=== PATIENT | female | born 1970 | race Caucasian/White ===

== ENCOUNTER → 2022-07-30 16:27 | Outpatient (CLI) | payer OTHER, SELFPAY ==
--- NOTE | 2022-07-30 16:30 | DI.MG.S_ITS ---
BILATERAL DIGITAL SCREENING MAMMOGRAM 3D/2D WITH CAD: 07/30/2022 CLINICAL: Baseline exam. Routine screening. Family history of breast cancer. No prior exams were available for comparison. Both breasts are heterogeneously dense, which may obscure small masses (category c / 51-75% glandular tissue). Current study was also evaluated with a Computer Aided Detection (CAD) system. No significant masses, calcifications, or other findings are seen in either breast. IMPRESSION: NEGATIVE There is no mammographic evidence of malignancy. A 1 year screening mammogram is recommended. Based on Tyrer-Cuzick model (a risk assessment model), the patient's lifetime risk is 21.6% and her 10 year risk is 5.6%. If a patient has an elevated risk, a more comprehensive evaluation should be considered and/or a referral to a genetic counselor. The [employer], [employer], and NCCN Guidelines advise the consideration of Breast MRI as an adjunct to screening mammography in patients whose Lifetime risk to develop breast cancer is 20% or higher. This exam was interpreted at Station ID: [id number]. NOTE: For mammograms, a report in lay terms will be sent to the patient. Approximately 15% of breast malignancies will not be visualized mammographically. In the management of a palpable breast mass, a negative mammogram must not discourage biopsy of a clinically suspicious lesion. Electronically Signed By: Chay foote/elle:07/31/2022 07:59:57 letter sent: Normal Exam ACR BI-RADS Category 1: Negative 3341F
== END ==
PROVIDERS: Referring Provider Nurse Practitioner; Visit Provider Nurse Practitioner
DX: Z12.31 Encounter for screening mammogram for malignant neoplasm of breast (principal); Z80.3 Family history of malignant neoplasm of breast
CPT/HCPCS: 77063; 77067

== ENCOUNTER → 2023-08-12 08:15 | Outpatient (CLI) | payer OTHER, SELFPAY ==
[2023-08-12 10:09] LABS: Alanine Aminotransferase 19 IU/L (<35); Albumin 4.1 g/dL (3.5-5.0); Albumin Globulin Ratio 1.4 (1.0-2.8); Alkaline Phosphatase 49 U/L (38-126); Amylase 52 U/L (30-110); Aspartate Aminotransferase 22 IU/L (14-36); BUN Creatinine Ratio 12.5 (6-22); Bilirubin Total 0.6 mg/dL (0.2-1.3); Blood Urea Nitrogen 9 mg/dL (7-17); Calcium 9.5 mg/dL (8.4-10.2); Carbon Dioxide 25 mmol/L (22-32); Chloride 102 mmol/L (98-107); Cholesterol 219 mg/dL (140-199); Estimated Glomerular Filt Rate > 60 mL/min (>60); Globulin 2.9 g/dL (1.7-4.1); Glucose 95 mg/dL (70-100); HDL Cholesterol 66 mg/dL (40-60); HEMOLYSIS < 15 (0-50); LDL Cholesterol Calculated 131 mg/dL (<100); Lactate Dehydrogenase 163 U/L (120-246); Lipase 77 U/L (23-300); Potassium 4.8 mmol/L (3.4-5.1); Sodium 136 mmol/L (137-145); Triglycerides 109 mg/dL (35-150)
[2023-08-12 10:11] LABS: Add Manual Diff / Slide Review NO; Basophils Absolute Auto 100 /uL (0-100); Basophils Percent Auto 1.3 % (0-2); Eosinophils Absolute Auto 900 /uL (0-450); Eosinophils Percent Auto 18.8 % (2-4); Hematocrit 36.8 % (36-46); Hemoglobin 12.7 g/dL (12.0-16.0); Lymphocytes Absolute Auto 1500 /uL (1100-4500); Lymphocytes Percent Auto 30.8 % (25-40); Mean Corpuscular HGB Conc 34.4 % (30-36); Mean Corpuscular Hemoglobin 31.2 PG (26-34); Mean Corpuscular Volume 90.7 fL (80-100); Monocytes Absolute Auto 500 /uL (0-900); Monocytes Percent Auto 10.1 % (3-14); Neutrophils Absolute Auto 1900 /uL (1500-7000); Platelet Count 593 X10^3/uL (150-400); Red Blood Cell Count 4.06 X10^6/uL (4.0-5.2); Red Cell Distribution Width 13.3 % (11.6-14.8)
[2023-08-12 10:33] LABS: Thyroid Stimulating Hormone 0.214 uIU/mL (0.47-4.68)
[2023-08-12 10:38] LABS: Ferritin 20 ng/mL (11-264)
== END ==
LOC: LAB 08:19
PROVIDERS: PCP Naturopath; Referring Provider Naturopath; Visit Provider Naturopath
DX: Z00.00 Encounter for general adult medical examination without abnormal findings (principal); E61.1 Iron deficiency; N95.1 Menopausal and female climacteric states; R53.83 Other fatigue; Z87.19 Personal history of other diseases of the digestive system
CPT/HCPCS: 36415; 80053; 80061; 82150; 82728; 83615; 83690; 84443; 85025

== ENCOUNTER 2023-10-21 09:59 | Day surgery (SDC) | payer OTHER, SELFPAY ==
[2023-10-14 12:46] VITALS: BMI 25.4
--- NOTE | 2023-10-21 | PATH_ITS ---
[facility] Accession Number: [id number] No. of containers..01 Tissue . 01 Material submitted: . cervix - ANTERIOR/POSTERIOR CERVIX . 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 No high-grade squamous intraepithelial lesion identified. No evidence of malignancy. GILSON-1 present at endocervical margin in 9 to 12 o'clock and 12 to 3 o'clock, aspects of specimen. [facility] 10/28/2023 1707 Local . 01 Electronically signed: . Ambrosio Culver MD, PhD, Pathologist NPI- [id number] . 01 Gross description: . Received in formalin with two identifiers and ANT/POS cervix, are two linear, oriented fragments of cervix. The first fragment has a long suture which designates anterior per the requisition, and is 2.0 x 0.8 x 0.3 cm, with the presumed endocervical margin inked orange, and the remaining stromal margin inked blue. The second fragment has a short suture which designates posterior per the requisition, is 1.7 x 1.0 x 0.4 cm, with the presumed endocervical margin inked orange, and the remaining stromal margins inked green. Per the requisition, the sutures also designate 12 and 6, respectively. The fragments are serially sectioned, and the specimen is submitted entirely as follows: . A1: 12 to 3. A2: 3 to 6. A3: 6 to 9. A4: 9 to 12. ([id number]) /V 10/22/2023 1717 Local . 01 Pathologist provided ICD-10: N87.0 . 01 CPT . 316634 Specimen Comment: A courtesy copy of this report has been sent to [phone] Performed at: 01 [facility] [address] [facility], [place], [place] [id number] MD Darrin Edwards MD Phone: [phone]
[2023-10-21] MEDS: LACTATED RINGERS 1,000 ML 42 ML IV (10:16)
[2023-10-21 10:18] VITALS: PULSE 87; RESP 16; TEMP 37.3; O2SAT 98; BMI 25.4
--- NOTE | 2023-10-21 10:33 | SUR.OPER ---
Lithotomy on padded OR bed, head on pillow, arms secured on padded arm boards at <90 degrees abduction. Legs secured in padded yellow fins stirrups.
--- NOTE | 2023-10-21 10:37 | PM.GYNHP.1 ---
History of Present Illness History of Present Illness Narrative: Maribel Gross is a 53 year old female with GILSON 1-2 on colposcopic biopsies. Patient is here for a LEEP cone biopsy of the cervix. ECC was negative. [facility] Medical History (Updated 04/13/23 @ 21:18 by Senia Rick) Chicken pox (~1977) Pancreatitis (~2007) Surgical History (Updated 04/13/23 @ 21:18 by Senia Rick) Anesthesia History of adenoidectomy (~1983) Family History (Updated 04/13/23 @ 21:19 by Senia Rick) Father Diabetes mellitus Mental health problem Mother No problems noted. Grandfather History of heart disease Social History household members: other Smoking Status: Former smoker alcohol intake: current Meds Home Medications and Allergies Home Medications Medication Instructions Recorded Confirmed Type escitalopram oxalate 5 mg tablet 5 mg PO DAILY 10/21/23 10/21/23 History Allergies Allergy/AdvReac Type Severity Reaction Status Date / Time amoxicillin Allergy Mild Verified 10/21/23 10:03 Sulfa (Sulfonamide Allergy Mild Verified 10/21/23 10:03 Antibiotics) Exam Vital Signs (past 8 hours): - 10/21/23 10:18 Temperature 99.1 F Pulse Rate 87 Respiratory Rate 16 Pulse Oximetry 98 Oxygen Delivery Method Room Air Oxygen Delivery Method Room Air Narrative Exam Narrative: HEENT: No thyromegaly, no anterior cervical or supraclavicular lymphadenopathy. Lungs:Clear to auscultation bilaterally, no wheezes. Cardiovascular: Regular rate and rhythm, no murmurs, rubs, or gallops. Abdomen: No scars. No hepatosplenomegaly. No masses palpable. External genitalia: Normal Vagina: Normal Cervix: Normal Bimanual exam: 6 Week size uterus. Mobile. Extremities: No edema Assessment & Plan Assessment & Plan narrative: Assessment: 53-year-old 1 para 1 with GILSON 1-2 on colposcopic biopsies Plan: LEEP cone biopsy of the cervix The risks, benefits, and alternatives to the procedure were explained to the patient. The risks including bleeding and infection. She understands these risks and agrees to proceed. A full par Q was held and consent form was signed. Time Spent With Patient Time with patient: less than 30 minutes
--- NOTE | 2023-10-21 10:39 | PM.PREOP ---
Pre-operative Note Interval Note History & Physical reviewed/Exam performed by Physician: Yes Changes to H&P: No H&P completed within 30 days and has changed as indicated here:: 10/21/23
[2023-10-21] MEDS: ACETAMINOPHEN IV 1,000 MG/100 ML VIAL 400 MG IV (10:54)
[2023-10-21 11:15] VITALS: BP 118/73; PULSE 81; RESP 11; TEMP 36.7; O2SAT 97
--- NOTE | 2023-10-21 11:16 | PM.GYNOP.1 ---
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 After adequate LMA general anesthesia was achieved, she was placed in the dorsal lithotomy position, and prepped and draped in the usual sterile fashion. A time-out was performed. A plastic coated bivalve speculum was placed into the vagina. Plastic coated single-tooth tenaculum was placed on the anterior lip of the cervix. The cervix was coated with Lugol solution. There were Lugol's light areas at the 5, 7, and 1 o'clock positions. There were 3 sources of suction. Using the 15 mm loop with settings at 80 cut and 60 cautery, the posterior lip of the cervix was excised with the loop. Using the same loop, the anterior lip of the cervix was excised. Ball cautery was used for hemostasis. The posterior specimen was labeled at 6 o'clock with a short suture. The anterior specimen was labeled at 12 o'clock with a long suture. hemostasis was achieved. The plastic coated single-tooth tenaculum was removed from the anterior lip of the cervix. The plastic coated bivalve speculum was removed from the vagina. Sponge, lap, and instrument counts were correct x2. The patient tolerated the procedure well, and was taken to PACU in stable condition. Complications: none Post-operative Condition: stable Disposition: PACU Plan for aftercare: Home after recovery
[2023-10-21 11:19] VITALS: BP 104/69; PULSE 67; RESP 13; O2SAT 98
[2023-10-21 11:24] VITALS: BP 106/60; PULSE 64; RESP 12; O2SAT 97
[2023-10-21 11:30] VITALS: BP 105/62; PULSE 67; RESP 16; O2SAT 98
[2023-10-21 11:34] VITALS: BP 113/63; PULSE 71; RESP 14; TEMP 36.4; O2SAT 98
== END 2023-10-21 11:53 | disposition home or self-care (01) ==
PROVIDERS: PCP Naturopath; Referring Provider Obstetrics & Gynecology; Visit Provider Obstetrics & Gynecology
PROC: 0UBC7ZZ Excision of Cervix, Via Natural or Artificial Opening (ICD-10-PCS; CPT 57522; principal; 2023-10-21 11:30)
DX: N87.0 Mild cervical dysplasia (principal)
CPT/HCPCS: 57522; J0136; J1100; J1885; J2405; J2704

== ENCOUNTER → 2023-12-10 07:56 | Outpatient (CLI) | payer OTHER, SELFPAY ==
[2023-12-10 08:44] LABS: Hematocrit 35.6 % (36-46); Hemoglobin 12.3 g/dL (12.0-16.0); Mean Corpuscular HGB Conc 34.6 % (30-36); Mean Corpuscular Hemoglobin 31.8 PG (26-34); Mean Corpuscular Volume 91.9 fL (80-100); Platelet Count 468 X10^3/uL (150-400); Red Blood Cell Count 3.88 X10^6/uL (4.0-5.2); Red Cell Distribution Width 13.4 % (11.6-14.8); White Blood Cell Count 4.6 X10^3/uL (4.5-11.0)
[2023-12-10 09:57] LABS: Ferritin 216 ng/mL (11-264)
== END ==
PROVIDERS: PCP Naturopath; Referring Provider Naturopath; Visit Provider Naturopath
DX: E61.1 Iron deficiency (principal)
CPT/HCPCS: 36415; 82728; 85027

== ENCOUNTER → 2024-02-05 08:48 | Outpatient (CLI) | payer BC, SELFPAY ==
[2024-02-05 10:37] LABS: Add Manual Diff / Slide Review NO; Basophils Absolute Auto 100 /uL (0-100); Basophils Percent Auto 1.3 % (0-2); Eosinophils Absolute Auto 300 /uL (0-450); Eosinophils Percent Auto 7.5 % (2-4); Hematocrit 37.7 % (36-46); Lymphocytes Absolute Auto 1300 /uL (1100-4500); Lymphocytes Percent Auto 28.4 % (25-40); Mean Corpuscular HGB Conc 34.5 % (30-36); Mean Corpuscular Hemoglobin 32.2 PG (26-34); Mean Corpuscular Volume 93.4 fL (80-100); Monocytes Absolute Auto 400 /uL (0-900); Monocytes Percent Auto 9.5 % (3-14); Neutrophils Absolute Auto 2400 /uL (1500-7000); Neutrophils Percent Auto 53.3 % (50-75); Platelet Count 461 X10^3/uL (150-400); Red Blood Cell Count 4.04 X10^6/uL (4.0-5.2); Red Cell Distribution Width 13.3 % (11.6-14.8); White Blood Cell Count 4.5 X10^3/uL (4.5-11.0)
[2024-02-05 20:48] LABS: Ferritin 141 ng/mL (11-264)
== END ==
PROVIDERS: PCP Naturopath; Referring Provider Naturopath; Visit Provider Naturopath
DX: E61.1 Iron deficiency (principal)
CPT/HCPCS: 36415; 82728; 85025

== ENCOUNTER → 2024-04-25 08:13 | Outpatient (CLI) | payer BC, SELFPAY ==
[2024-04-25 09:19] LABS: Alanine Aminotransferase 17 IU/L (<35); Albumin 4.2 g/dL (3.5-5.0); Albumin Globulin Ratio 1.8 (1.0-2.8); Alkaline Phosphatase 49 U/L (38-126); Aspartate Aminotransferase 18 IU/L (14-36); BUN Creatinine Ratio 18.3 (6-22); Bilirubin Total 0.5 mg/dL (0.2-1.3); Blood Urea Nitrogen 11 mg/dL (7-17); Calcium 9.2 mg/dL (8.4-10.2); Carbon Dioxide 24 mmol/L (22-32); Chloride 108 mmol/L (98-107); Cholesterol 221 mg/dL (140-199); Estimated Glomerular Filt Rate > 60 mL/min (>60); Globulin 2.3 g/dL (1.7-4.1); Glucose 101 mg/dL (70-100); HDL Cholesterol 61 mg/dL (40-60); HEMOLYSIS < 15 (0-50); LDL Cholesterol Calculated 136 mg/dL (<100); Sodium 136 mmol/L (137-145); Total Protein 6.5 g/dL (6.3-8.2); Triglycerides 118 mg/dL (35-150)
[2024-04-25 09:51] LABS: Thyroid Stimulating Hormone 1.34 uIU/mL (0.47-4.68)
[2024-04-26 08:10] LABS: Apolipoprotein B 101 mg/dL (<90)
[2024-04-28 03:11] LABS: Lipoprotein (a) 18.1 nmol/L (<75.0)
== END ==
PROVIDERS: PCP Naturopath; Referring Provider Naturopath; Visit Provider Naturopath
DX: E78.00 Pure hypercholesterolemia, unspecified (principal); R60.9 Edema, unspecified
CPT/HCPCS: 36415; 80053; 80061; 82172; 83695; 84443

== ENCOUNTER → 2024-06-26 10:13 | Outpatient (CLI) | payer BC, SELFPAY ==
[2024-06-26 11:17] LABS: BUN Creatinine Ratio 23.2 (6-22); Blood Urea Nitrogen 16 mg/dL (7-17); Calcium 9.9 mg/dL (8.4-10.2); Carbon Dioxide 24 mmol/L (22-32); Chloride 101 mmol/L (98-107); Estimated Glomerular Filt Rate > 60 mL/min (>60); Glucose 95 mg/dL (70-100); HEMOLYSIS < 15 (0-50); Potassium 4.3 mmol/L (3.4-5.1); Sodium 133 mmol/L (137-145)
== END ==
LOC: LAB 10:14
PROVIDERS: PCP Naturopath; Referring Provider Naturopath; Visit Provider Naturopath
DX: Z51.81 Encounter for therapeutic drug level monitoring (principal)
CPT/HCPCS: 36415; 80048

== ENCOUNTER → 2024-09-25 07:31 | Outpatient (CLI) | payer BC, SELFPAY ==
--- NOTE | 2024-09-25 07:32 | DI.CT.S_ITS ---
P the and a ROCEDURE: CT LUNG LOW DOSE SCREENING INDICATIONS: lung cancer screening TECHNIQUE: Noncontrast 2.0-2.5 mm thick sections acquired from the pulmonary apices to the posterior costophrenic angles. 8 mm thick axial MIP, and 5 mm coronal and sagittal reformats were then acquired. For radiation dose reduction, the following was used: automated exposure control, adjustment of mA and/or kV according to patient size. COMPARISON: None. FINDINGS: Image quality: Diagnostic. Lower Neck: No enlarged lymph nodes. Thyroid: No thyroid nodules which require sonographic follow up, per consensus guidelines. Axillae: No enlarged lymph nodes. Chest Wall: Unremarkable. Bones: Visualized osseous structures appear intact without acute fracture or focal destructive lesion. No acute compression fractures of the imaged spine. Lungs and Pleura: Mild upper lobe predominant pulmonary emphysematous changes. A 4 mm pleural-based posterior left upper lobe nodule (61/series 3). A 4 mm inferior, lateral lingular nodule (193/series 3). A 4 mm lateral left lower lobe nodule (245/series 3). A 4 mm posterior right upper lobe pleural-based nodule (52/series 3). A 3 mm right middle lobe nodule (161/series 3). A 4 mm fissural based nodule along the anterior right minor fissure (140/series 3). No pneumothorax or pleural effusion. No suspicious septal nodularity. Visualized airways appear clear. Heart: Heart size is normal. No pericardial effusion. Thoracic Vessels: The aorta and pulmonary arteries demonstrate normal size. Mediastinum and Yaritza: No enlarged lymph nodes. Esophagus: No wall thickening. No hiatal hernia. Upper Abdomen: Tiny punctate nonobstructing bilateral renal stones. No hydronephrosis or perinephric stranding. Other visualized upper abdomen solid organs and bowel loops appear normal. IMPRESSION: No suspicious pulmonary nodules. LUNG-RADS 2; continued annual screening, if eligible. Clinically Significant Non-pulmonary Findings: Tiny punctate nonobstructing bilateral renal stones. Dictated by: Chay Garcia M.D. on 09/25/2024 at 11:56 Approved by: Chay Garcia M.D. on 09/25/2024 at 12:10
--- NOTE | 2024-09-25 07:32 | DI.MG.S_ITS ---
MM screening mammo BI: 09/25/2024. BI-RADS: 1 CLINICAL: 54-year old female for bilateral screening mammogram. Tyrer-Cuzick lifetime risk of 25.3%. No personal or first-degree family history of breast cancer. Current reported family history of breast cancer: maternal grandmother. PRIOR EXAMS 07/30/2022. MAMMOGRAPHY TECHNIQUE: 2D and 3D (tomosynthesis) digital mammographic views obtained, with additional images as needed for full coverage. Current study was also evaluated with a Computer Aided Detection (CAD) system. DENSITY D. The breasts are extremely dense, which lowers the sensitivity of mammography. MAMMOGRAPHY FINDINGS Bilateral: No suspicious mass, asymmetry, microcalcification, or other abnormality seen. No significant change from comparison. IMPRESSION: * No evidence of malignancy. RECOMMENDATIONS Bilateral * According to the Tyrer-Cuzick Risk Assessment Model, based on the information provided your patient has a greater than 20% lifetime risk for developing breast cancer. Consider supplemental screening with breast MRI and participation in a high risk screening program. * Annual screening mammography. OVERALL ASSESSMENT CATEGORY BI-RADS-1: Negative. The [employer] recommends annual screening mammography beginning at age 40 for women with average risk of breast cancer. ELECTRONICALLY SIGNED: Riri Pulido M.D. on 09/25/2024 at 09:35:16 AM PT Interpreting Station ID: [id number]
== END ==
PROVIDERS: PCP Family Medicine; Referring Provider Family Medicine; Visit Provider Family Medicine
DX: Z12.31 Encounter for screening mammogram for malignant neoplasm of breast (principal); Z80.3 Family history of malignant neoplasm of breast; R92.343 Mammographic extreme density, bilateral breasts; Z12.2 Encounter for screening for malignant neoplasm of respiratory organs; Z87.891 Personal history of nicotine dependence; M25.519 Pain in unspecified shoulder
CPT/HCPCS: 71271; 77063; 77067

== ENCOUNTER 2024-12-16 13:18 | Day surgery (SDC) | payer BC, SELFPAY ==
--- NOTE | 2024-12-16 13:34 | P.OP.COLON_ITS ---
Operative Date/Time/Diagnoses Date of procedure: 12/16/24 Time of procedure: 14:36 Pre-op diagnosis: See indication Post-op diagnosis: same Procedure & Clinicians Study performed: Colonoscopy Same procedure(s) as scheduled: Yes Indications: First screening Surgeon: Ion Gambino Anesthesia Type: Other Procedure Notes Procedure in detail: After informed consent was obtained the patient was placed in left lateral decu bitus position. The video colonoscope was introduced the rectum slowly advanced cecum. Preparation was good. On slow withdrawal mucosa was carefully examined. The scope was removed. Patient tolerated procedure well. Blood loss none Complications none Sedation mac Findings 1. Normal colonoscopy to cecum Patient should have follow-up colonoscopy in 10 years
--- NOTE | 2024-12-16 13:34 | PM.HP.IH.1 ---
History of Present Illness History of Present Illness Date Patient Seen: 12/16/24 Chief complaint: Colonoscopy Narrative: First colonoscopy [facility] Medical History (Updated 07/27/24 @ 19:02 by Senia Rick) Foot pain (~2022) Shoulder pain (~2022) Anemia (~2023) Chicken pox (~1977) Pancreatitis (~2007) Surgical History (System 12/10/23 @ 09:25 by Shanthi Díaz) S/P LEEP (loop electrosurgical excision procedure) Anesthesia History of adenoidectomy (~1983) Family History (Updated 07/27/24 @ 19:03 by Senia Rick) Father Diabetes mellitus Mental health problem Hyperlipidemia Hypertension Mother Diabetes mellitus History of heart disease Hypertension Hyperlipidemia Grandfather History of heart disease Family/Other Depression Anxiety Social History (System 12/10/23 @ 09:25 by Shanthi Díaz) household members: other alcohol intake: current Meds Home Medications and Allergies Home Medications ?Medication ?Instructions ?Recorded ?Confirmed ?Type progesterone micronized 100 mg 100 mg PO QAM 04/08/24 09/14/24 History capsule estradiol acetate 0.1 mg/24 hr 1 vag ring vaginal [id number] 09/14/24 09/14/24 History vaginal ring (Femring) folic acid 1 mg tablet 1 mg PO DAILY 09/14/24 09/14/24 History methylphenidate HCl 10 mg 10 mg PO QAM 09/14/24 09/14/24 History tablet,extended release omega 3-ijm-qno-fish oil 1,000 mg 1 cap PO DAILY 09/14/24 09/14/24 History (120 mg-180 mg) capsule (Fish Oil) sodium,potassium,mag sulfates 17.5 See Rx Instructions PO .COMPLEX 11/13/24 Rx gram-3.13 gram-1.6 gram oral soln #354 mL (Suprep Bowel Prep Kit) Allergies Allergy/AdvReac Type Severity Reaction Status Date / Time amoxicillin Allergy Mild Rash Verified 12/16/24 13:34 Sulfa (Sulfonamide Allergy Mild Rash Verified 12/16/24 13:34 Antibiotics) Assessment & Plan Assessment & Plan narrative: First colonoscopy. Risks, benefits, alternatives have been explained. Time-Based Coding :: [TOTAL MINUTES] spent with patient and on the chart (including review of chart, obtaining history, exam, reviewing outside data, placing orders, documenting exam and treatment plan, and counseling patient) on [DATE]. PROFEE Sash Sticker Document charge(s): No
[2024-12-16 13:39] VITALS: BP 102/69; PULSE 73; RESP 16; TEMP 36.3; O2SAT 100
[2024-12-16] MEDS: LACTATED RINGERS 1,000 ML 42 ML IV (13:54)
[2024-12-16 14:27] VITALS: BP 83/53; PULSE 84; RESP 17; TEMP 36.4; O2SAT 95
[2024-12-16 14:32] VITALS: BP 84/55; PULSE 79; RESP 16; O2SAT 95
[2024-12-16 14:34] VITALS: BP 85/59; PULSE 81; RESP 17; O2SAT 97
[2024-12-16 14:37] VITALS: BP 89/59; PULSE 74; RESP 16; O2SAT 98
[2024-12-16 14:44] VITALS: BP 87/52; PULSE 83; RESP 13; TEMP 36.2; O2SAT 99
== END 2024-12-16 15:11 | disposition home or self-care (01) ==
PROVIDERS: PCP Family Medicine; Referring Provider Internal Medicine Gastroenterology; Visit Provider Internal Medicine Gastroenterology
PROC: 0DJD8ZZ Inspection of Lower Intestinal Tract, Via Natural or Artificial Opening Endoscopic (ICD-10-PCS; CPT 45378; principal; 2024-12-16 14:30)
DX: Z12.11 Encounter for screening for malignant neoplasm of colon (principal); Z87.891 Personal history of nicotine dependence
CPT/HCPCS: G0121; J2704